=== PATIENT | female | born 1940 | race Caucasian/White ===

== ENCOUNTER → 2024-11-07 13:31 | Outpatient (REF) | payer MEDICARE, SELFPAY | LOC: HWWDC 13:31 | PROVIDERS: ATTENDING PHYSICIAN Family Medicine | DX: Z12.31 Encounter for screening mammogram for malignant neoplasm of breast (principal) | CPT/HCPCS: 77063; 77067 ==

== ENCOUNTER 2024-12-12 06:32 | Day surgery (SDC) | payer MEDICARE, SELFPAY ==
[2024-11-21 13:43] VITALS: BMI 29.7
[2024-11-21 14:06] LABS: Hematocrit 45.5 % (37.0-47.0); Mean Corpuscular Hgb 31.1 pg (27.0-31.0); Mean Corpuscular Volume 94.2 fL (81.0-99.0); Mean Platelet Volume 10.1 fL (7.4-10.4); Platelet Count 223 10^3/uL (130-400); Red Blood Cell Count 4.83 10^6/uL (4.20-5.40); Red Cell Dist. Width 13.1 % (11.5-14.5); White Blood Cell Count 5.2 10^3/uL (4.8-10.8)
[2024-11-21 14:31] LABS: Glycohemoglobin (HgbA1c) 6.2 % (4.0-5.6)
[2024-11-21 14:51] LABS: ALT (SGPT) 22 U/L (0-35); AST (SGOT) 29 U/L (14-36); Albumin 4.4 g/dl (3.5-5.0); Alkaline Phosphatase 77 U/L (38-126); Blood Urea Nitrogen 15 mg/dl (7-17); Calcium 9.4 mg/dl (8.4-10.2); Carbon Dioxide 31 mmol/L (22-30); Chloride 98 mmol/L (98-107); Estimated Creatinine Clearance 72 ml/min; Glucose 95 mg/dl (70-99); Potassium 4.3 mmol/L (3.5-5.1); Sodium 137 mmol/L (135-145); Total Bilirubin 0.4 mg/dl (0.2-1.3); Total Protein 7.2 g/dl (6.3-8.2); eGFR > 60.00
--- NOTE | 2024-11-30 15:27 | VNURNOTE ---
Patient is scheduled for an elective R TKA on 12/12/24- she is a same day patient with Dr Menjivar. Spoke with patient prior to surgery. Introduced role of [facility] Liaison. Patient reports that she lives alone a split level house.
There is 1 [address] and 4 steps to the kitchen. There are 6 steps to the bathroom and bedroom.
There is a powder room on the entry level programmer. She has an ice wrap, cane and rolling walker.
PCP is Dr Angelica Foss.
Discussed [facility] joint protocol and post surgical plans.
Reviewed that she will have [facility] services initially and will then start outpatient PT.
Patient selects [facility]N for home care needs and will go to [facility] for outpatient PT. Scheduled for 12/17.
Patient is in agreement with plan and states that her daughter will be home with her. Advised to bring RW with her day of surgery. [facility]
Plan: [facility] per [facility] joint protocol 12/12 then outpt PT on 12/17
[2024-12-10 15:27] VITALS: BMI 29.7
[2024-12-12] VITALS (17 sets, daily range): BP systolic 82–163; BP diastolic 47–99; PULSE 84; O2SAT 93
[2024-12-12] MEDS: CELEBREX 200 MG PO (07:53)
[2024-12-12] MEDS: TYLENOL 650 MG PO (07:53)
[2024-12-12] MEDS: NORMOSOL-R/PLASMALYTE-A 1000 IV (07:53)
[2024-12-12] MEDS: ROXICODONE 5 MG PO (12:29)
[2024-12-12] MEDS: ANCEF 5 IV (12:57)
== END 2024-12-12 13:48 | disposition home health service (06) ==
LOC: SDS 06:32
PROVIDERS: ATTENDING PHYSICIAN Orthopaedic Surgery; FAMILY PHYSICIAN Family Medicine; OTHER PHYSICIAN Physician Assistant Medical
PROC: 0SRC0J9 Replacement of Right Knee Joint with Synthetic Substitute, Cemented, Open Approach (ICD-10-PCS; 2024-12-12)
DX: M17.11 Unilateral primary osteoarthritis, right knee (principal); E66.9 Obesity, unspecified; I87.2 Venous insufficiency (chronic) (peripheral); R73.03 Prediabetes; Z68.29 Body mass index [BMI] 29.0-29.9, adult
CPT/HCPCS: 27447; 36415; 73560; 80053; 83036; 85027; 87070; 93005; 97116; 97162; C1713; C1776